=== PATIENT | female | born 2000 ===

== ENCOUNTER → 2024-07-07 | Outpatient (REF) | payer BC ==
[2024-07-07 20:31] LABS: APPEARANCE, URINE MANUAL CLOUDY (CLEAR); COLOR, URINE MANUAL YELLOW (YELLOW)
[2024-07-07 20:34] LABS: BILIRUBIN, URINE MANUAL NEGATIVE (NEGATIVE); BLOOD URINE MANUAL NEGATIVE (NEGATIVE); GLUCOSE, URINE (UA) MANUAL NEGATIVE (NEGATIVE); KETONE, URINE MANUAL NEGATIVE (NEGATIVE); LEUKOCYTE ESTERASE, URINE MAN TRACE (NEGATIVE); NITRITE, URINE MANUAL NEGATIVE (NEGATIVE); PROTEIN, URINE MANUAL NEGATIVE (NEGATIVE); UROBILINOGEN, URINE MANUAL NORMAL (NORMAL)
[2024-07-07 20:37] LABS: AMORPHOUS SEDIMENT, URINE LARGE AMOUNT (NEGATIVE); BACTERIA, URINE NONE SEEN; RBC, URINE NONE SEEN /hpf (0-3); SQUAMOUS EPITHELIAL CELL URINE MOD AMOUNT /hpf (SMALL AMT); WBC, URINE 0-1 /hpf (0-3)
[2024-07-07 20:38] LABS: MUCUS, URINE MOD AMOUNT (NEGATIVE)
[2024-07-08 17:00] LABS: GC DNA AMPLIFICATION NEGATIVE (NEGATIVE)
[2024-07-09 17:09] LABS: Trichomonas vaginalis (AMP) NOT DETECTED (NEGATIVE)
== END ==
LOC: M LAB REF 20:24
PROVIDERS: ATTEND Physician Assistant
DX: Z20.2 Contact with and (suspected) exposure to infections with a predominantly sexual mode of transmission (principal)

== ENCOUNTER 2024-12-13 14:48 | Emergency (ER) | payer BC ==
[~2024-12-13] VITALS: Ht 160 cm; Wt 122.4 kg
[2024-12-13 14:49] VITALS: BP 172/88; TEMP 98.2; O2SAT 97
[2024-12-13] MEDS ORDERED: ALBU8.5H (15:01)
[2024-12-13] MEDS ORDERED: FLUO40CA (15:01)
[2024-12-13] MEDS ORDERED: HYDR50CA2 (15:01)
[2024-12-13] MEDS ORDERED: AMPH1CAP14 (15:01)
[2024-12-13] MEDS ORDERED: LAMO-18 (15:01)
== END 2024-12-13 15:30 | disposition left against medical advice (07) ==
LOC: M ED 14:48
DX: Z53.21 Procedure and treatment not carried out due to patient leaving prior to being seen by health care provider (principal)